=== PATIENT | female | born 1980 | race Caucasian/White ===

== ENCOUNTER 2016-10-12 09:35 | Emergency (ER) | payer OTHER ==
[~2016-10-12] VITALS: Ht 152.4 cm; Wt 87.1 kg
[~2016-10-12 09:35] MED LIST: ALPRAZOLAM0.5 M3 PO; BUPROPION HYDR150 M5 PO; BUPROPION HYDR300 M1 PO; ELIMITE5% TP; IBUPROFEN800 M1 PO; MOBIC 15MG15 MG PO; MOTRIN800 MG PO; ORTHO TRI-CYCLE1 TAB; PERCOCET 325 MG1 TA2 PO; TOPIRAMATE100 MG PO; TRIAMCINOL0.1 %/453 TOP; VISTARIL25 MG PO; ZOFRAN4 M2 PO
[2016-10-12 09:42] VITALS: BP 152/95
--- NOTE | 2016-10-12 11:08 | ED INFLUENZA/URI COMPLAINT ---
History of Present Illness General Chief Complaint: Upper Respiratory Sx/Fever Stated Complaint: COUGH,CONGESTION,CHILLS,BODY ACHES Source: patient Exam Limitations: no limitations Vital Signs & Intake/Output Vital Signs & Intake/Output ED Intake and Output 10/13 0000 10/12 1200 Intake Total Output Total Balance Patient 192 lb Weight Allergies Coded Allergies: morphine (From DURAMORPH (PF)) (Severe, FACE SWELLING, GI UPSET 02/15/16) Penicillins (UNKNOWN 02/15/16) Reconcile Medications Azithromycin (Zithromax) 250 MG TABLET 1 DP PO AD BRONCHITIS 2 the first day followed by 1 for days 2-5 Robitussin AC (Guaifenesin-Codeine Syrup) 200 MG-20 MG/10 ML LIQUID 5 ML PO Q6HR PRN COUGH Triage Note: 36 Y/O FEMALE C/O URI SYMPTOMS SINCE TUESDAY: COUGH WITH GREEN PHLEGM, HEADACHES, BILATERAL EAR AND NECK PAIN; CHEST PAIN WITH INSPIRATION AND BODY ACHES. AFEBRILE. Triage Nurses Notes Reviewed? yes Onset: Gradual Duration: day(s): (4) Timing: remote history Severity: moderate Severity Numbers: 8 Prior Episodes/Possible Cause: occassional episodes No Modifying Factors: none : No Patient currently breastfeeds: No HPI: Patient is a 36-year-old female presenting to the emergency department chief complaining of diffuse body aches, malaise, tactile fevers and chills, intermittently productive cough of yellow-green sputum. She is also reporting sinus congestion. Everything started 4 days ago. Unknown about any sick contacts. No travel and no recent antibiotic use. Denies any nausea or vomiting or abdominal pain. No diarrhea. She reports shortness of breath and chest wall pain with coughing only. Symptoms moderate. Past History Travel History Traveled to [place] past 21 day No Medical History Any Pertinent Medical History? see below for history Neurological: NONE EENT: NONE Cardiovascular: NONE Respiratory: NONE Gastrointestinal: irritable bowel syndrome Hepatic: NONE Renal: NONE Musculoskeletal: NONE Psychiatric: NONE Endocrine: NONE Surgical History Surgical History: , tubal ligation, COLONOSCOPY 10 YRS AGO Psychosocial History What is your primary language Uzbek Tobacco Use: Current Not Daily Family History Hx Contributory? No Review of Systems Review of Systems Constitutional: Reports: chills, fever, malaise. Comments Review of systems: See HPI, All other systems negative. Constitutional, no weight loss HEENT: No visual changes Cardiovascular: No chest pain ,palpitation , orthopnea Skin, no jaundice no rashes Respiratory: No dyspnea cough sputum or hemoptysis GI: No nausea no vomiting : No dysuria No hematuria Muscle skeletal: no back pain, no neck pain, Neurologic: No numbness no confusion Psych: No stress anxiety or depression,. Heme/endocrine: No bruising no bleeding no polyuria or polydipsia Immunology: No splenectomy or history of AIDS Physical Exam Physical Exam General Appearance: well developed/nourished, no apparent distress, alert, awake , comfortable Ears, Nose, Throat: nasal congestion, nasal drainage Comments: Well-developed well-nourished person in no acute distress HEENT:Pupils equally round and reactive to light and accommodation. Nose is atraumatic. External auditory canal and Tympanic membranes clear. Pharynx is mildly erythematous. Uvula midline. Clear secretions without difficulty. No swelling or edema. Neck: Supple, no lymphadenopathy, normal range of motion without pain or tenderness Back: Nontender Cardiovascular: Regular rate and rhythms no murmurs rubs or gallops, normal JVP Respiratory: Chest nontender. No respiratory distress.lungs clear to auscultation bilaterally, dry reactive cough on exam. Extremity: No edema Neuro: Alert oriented x3 Skin: No appreciable rash on exposed skin, skin is warm and dry. Psych: Mood and affect is normal, memory and judgment is normal. Core Measures Severe Sepsis Present: No Septic Shock Present: No Progress Differential Diagnosis: influenza, otitis, pneumonia, pharyngitis, sinusitis Plan of Care: Orders Procedure Date/time Status RAPID VIRAL INFLUENZA A 10/12 1100 Complete Initial ED EKG: none Departure Departure Time of Disposition: 1144 Disposition: HOME OR SELF CARE Condition: Stable Clinical Impression Primary Impression: Bronchitis Referrals: VALERY KITCHEN MD (PCP/Family) Additional Instructions: Follow-up with your primary care physician call to make an appointment. Take Z- Bret as prescribed, take Robitussin with codeine as prescribed for cough. Increase fluids. Return for worsening symptoms or concerns. Departure Forms: Customer Survey General Discharge Information Prescriptions: Current Visit Scripts Azithromycin (Zithromax) 1 DP PO AD #6 TAB 2 the first day followed by 1 for days 2-5 Robitussin AC (Guaifenesin-Codeine Syrup) 5 ML PO Q6HR PRN COUGH #200 ML
[2016-10-12] MEDS ORDERED: ZITHROMAX250 M2 PO (11:45)
[2016-10-12] MEDS ORDERED: GUAIFENESIN-COD10 ML PO (11:52)
== END 2016-10-12 11:56 ==
LOC: ERH 09:35
DX: J40 Bronchitis, not specified as acute or chronic (principal); Z72.0 Tobacco use
CPT/HCPCS: 87804; 87804-59